=== PATIENT | male | born 1950 | race Caucasian/White ===

== ENCOUNTER → 2017-07-13 | Outpatient (CLI) | payer OTHER ==
[~2017-07-13] MED LIST: ALTACE 10MG TAB10 MG PO; ALTACE10 MG PO; BETAPACE AF120 MG PO; CEPHALEXIN500 M1 PO; COUMADIN 22.5 MG/TAB PO; DYAZIDE 25 MG-31 CAP PO; ISORDIL 5MG TABL5 MG PO; LIPITOR 10MG10 MG PO; LOPRESSOR 550 MG/TAB PO; LOPRESSOR50 MG PO; NORVASC 10MG10 MG PO; PRADAXA 150MG150 MG PO; SEPTRA DS 8001 TAB PO; SOTALOL PO; TOPROL XL100 MG PO; TRIAMTERENE W/H1 CAP PO; TRIAMTERENE/HCT1 TAB PO; WARFARIN SOD5 MG PO; WARFARIN SODIUM5 MG PO; isordil PO
== END ==
LOC: COL.RAD 08:04
DX: N27.0 Small kidney, unilateral (principal); B18.2 Chronic viral hepatitis C

== ENCOUNTER → 2023-10-29 | Day surgery (SDC) | payer MEDICARE, OTHER ==
[~2023-10-29] VITALS: Ht 175.3 cm; Wt 119.8 kg
[~2023-10-29] MED LIST changes: +BENICAR40 MG PO; +CATAPRES0.3 MG PO; +CLEOCIN HC150 MG/CAP PO; +COUMADIN 6MG6 MG/TAB PO; -DYAZIDE 25 MG-31 CAP PO; +LASIX 20MG TABL20 MG PO; -LIPITOR 10MG10 MG PO; +LIPITOR20 MG PO; +LR 1,000 ML IV SCH; +MAXZIDE-25MG TA1 TAB PO; +MOTRIN 600600 MG/TAB PO; +NORCO 325 MG-51 TAB PO; -NORVASC 10MG10 MG PO; +NORVASC 5MG5 MG/TAB PO; +NS 100 ML IV ONE; +Ondansetron 4 MG/2 ML VIAL IV PRN; +Phenylephrine 10 MG/ML VIAL ONE
[2023-10-29 05:52] VITALS: BP 176/82; PULSE 61; TEMP 98.1
--- NOTE | 2023-10-29 06:00 | NUR ---
The patient ambulated back to [facility] independently using a steady gait and appered to tolerate the activity well. Vital signs obtained. Consent signed. 20G IV started in right hand with one stick, LR Infusing without difficult. Assessment completed. Home medications reconcilled. Warm blanket provided. , Karen, brought back to be at his bedside. Call light is within reach. The patient denies any further needs at this time.
[2023-10-29 07:30] VITALS: BP 164/97; PULSE 63; TEMP 98.5
--- NOTE | 2023-10-29 07:30 | NUR ---
0730 Pt ambulated from cart to chair with standby assist. Family at bedside 0736 pt tolerating clear liquids and muffin without difficulty
[2023-10-29 07:45] VITALS: BP 168/80; PULSE 63; TEMP 98.4
[2023-10-29 08:00] VITALS: PULSE 65
--- NOTE | 2023-10-29 08:05 | NUR ---
0730 MD Zackery in room 0755 Pt verbalizes understanding of discharge instructions. No questions or concerns 0802 pt dressed self independently - escorted to vehicle in wheelchair
== END ==
LOC: SDCO 10-15 07:00
DX: Z12.11 Encounter for screening for malignant neoplasm of colon (principal); D12.3 Benign neoplasm of transverse colon
CPT/HCPCS: J2371; J2704; J7120